=== PATIENT | male | born 1995 | race Caucasian/White ===

== ENCOUNTER → 2020-08-23 | Outpatient (REF) ==
--- NOTE | 2020-08-23 11:58 | Diagnostic Imaging Report ---
INDICATION: Right hand pain. FINDINGS: 3 views of the right middle finger show no fracture, dislocation or other acute abnormalities. IMPRESSION: Negative right middle finger and right hand. Dictated by: Dictated on workstation # [id number]
== END ==
LOC: OCC 11:41
PROVIDERS: ATTEND Nurse Practitioner Family
DX: M79.641 Pain in right hand (principal)
CPT/HCPCS: 73140